=== PATIENT | female | born 1960 | race Caucasian/White ===

== ENCOUNTER 2017-04-03 07:02 | Day surgery (SDC) | payer OTHER ==
[2017-03-31 17:04] VITALS: BMI 33.9
[~2017-04-03] VITALS: Ht 157.5 cm; Wt 85.0 kg
[2017-04-03] VITALS (13 sets, daily range): BP systolic 123–158; BP diastolic 65–82; PULSE 50–68; RESP 14–23; Ht 157.5 cm; Wt 85.0 kg
[~2017-04-03 07:02] MED LIST: CLINDAMYCIN 600 MG/50 ML D5W IVPB IVPB ONE; DESFLURANE 15 MIN ONE
[2017-04-03] MEDS ORDERED: BUPIVACAINE 0.25% (MPF) 10 ML 10 ML VIAL ONE (09:26)
[2017-04-03] MEDS ORDERED: ROCURONIUM 50 MG INJ ONE (09:37)
[2017-04-03] MEDS ORDERED: PROPOFOL 20 ML ONE (09:37)
[2017-04-03] MEDS ORDERED: FENTAnyl 50 MCG/ML VIAL ONE ×2 (09:37→09:49)
[2017-04-03] MEDS ORDERED: LIDOCAINE 2% (SDV) 5 ML INJ ONE (09:37)
[2017-04-03] MEDS ORDERED: DEXAMETHASONE 4 MG/ML 1 ML INJ ONE (09:50)
[2017-04-03] MEDS ORDERED: ONDANSETRON 4 MG INJ ONE (09:50)
[2017-04-03] MEDS ORDERED: SUGAMMADEX SODIUM 200 MG/2 ML VIAL IV ONE (10:21)
--- NOTE | 2017-04-03 10:27 | OPR ---
Date/Time of Note Date/Time of Note DATE: 04/03/17 TIME: 10:22 Operative Report Procedure Date: Apr 03, 2017 Preoperative Diagnosis symptomatic gallstones Postoperative Diagnosis same Operation Performed 1. laparoscopic cholecystectomy 2. therapeutic injection of subcutaneous marcaine cpt code [id number] Surgeon Checo Barrera Anesthesia Type: general Estimated Blood Loss: 0 - 10 ml's Specimens gallbladder Grafts/Implants: none Complications: no Indications This is a 48 year this is a 56-year-old female with symptomatic gallstones. She requests surgical excision of her gallbladder. Risks alternatives benefits and percent were discussed the patient. Potential complications including but not limited to bleeding infection Port sie hernia intra-abdominal organ injury or bladder injury need for reoperation and possible were discussed the patient patient expressed understanding and consents to the operation. Procedure Description Patient is taken to the OR prepped and draped in usual sterile fashion. Surgical timeout was performed. IV antibiotics were given. Infraumbilical transverse incision is made with a 15 blade. Dissection cautery was carried down to the fascia. The fascia was grasped with Althea's divided with curved Pena scissors. 0 Vicryl U stitch was placed into the fascia. Blueness on trocar was introduced pneumoperitoneum is established. Midepigastric 12 mm optical trochars placed under direct visualization. Right upper quadrant upper flank 5 mm optical trochars were placed under direct vision sedation. Upon initial inspection there is some adhesions to the gallbladder which were taken down bluntly. The gallbladder was grasped and retracted in the lateral and our direction. Lateral dissection is initiated with cautery. Careful dissection was performed of the cystic duct. The critical view is established. The cystic duct was divided using 3 clips proximal and distal end is divided using a 35 mm echelon vascular stapler. The cystic artery is divided with 3 clips proximal and clip distal. The gallbladder is taken of the gallbladder bed. There is good hemostasis. The gallbladder is retrieved using Endo Catch bag. Ports removed under direct visualization. 0 Vicryl U stitch was tied down. Skin is closed using skin barry. Therapeutic sub-contains Marcaine was injected throughout the port sites. Dressings were applied. Dafne BARRERA Apr 03, 2017 10:26
[2017-04-03] MEDS ORDERED: HYDROCODONE/APAP (5/325) TAB PO ONE (10:30)
[2017-04-03] MEDS ORDERED: DIPHENHYDRAMINE 50 MG INJ IV PRN (11:00)
[2017-04-03] MEDS ORDERED: ONDANSETRON 4 MG INJ IV PRN (11:00)
[2017-04-03] MEDS ORDERED: EPHEDrine SULFATE 50 MG/5 ML SYG IV PRN (11:00)
[2017-04-03] MEDS ORDERED: MEPERIDINE 25 MG INJ IV PRN (11:00)
[2017-04-03] MEDS ORDERED: KETOROLAC 30 MG INJ IV PRN (11:00)
[2017-04-03] MEDS ORDERED: hydrALAzine 20 MG INJ IV PRN (11:00)
[2017-04-03] MEDS ORDERED: FENTAnyl 50 MCG/ML VIAL IV PRN ×3 (11:00)
[2017-04-03] MEDS ORDERED: HYDROmorphONE (0.2 MG/ML) 10ML SYG IV PRN ×3 (11:00)
[2017-04-03] MEDS ORDERED: LABETALOL HCL 20MG INJ IV PRN (11:00)
[2017-04-03] MEDS ORDERED: OXYCODONE/ACETAMINOPHEN (5/325) TAB PO PRN ×2 (11:00)
[2017-04-03] MEDS ORDERED: HYDROmorphONE (0.2 MG/ML) 10ML SYG IV ONE (11:12)
== END 2017-04-03 12:55 | disposition home or self-care (01) ==
LOC: SDS 07:02
PROVIDERS: ATTEND Surgery
DX: K80.10 Calculus of gallbladder with chronic cholecystitis without obstruction (principal); G40.909 Epilepsy, unspecified, not intractable, without status epilepticus
CPT/HCPCS: 47562; 88304; J1100; J1170; J2405; J3010; Z7512; Z7610